=== PATIENT | female | born 1985 | race Asian ===

== ENCOUNTER → 2023-03-21 15:08 | Outpatient (BNVA) | payer OTHER, SELFPAY | PROVIDERS: PCP Advanced Practice Midwife; Visit Provider Nurse Practitioner Family | DX: N31.9 Neuromuscular dysfunction of bladder, unspecified (principal) | CPT/HCPCS: 99202 ==

== ENCOUNTER 2023-07-07 08:33 | Outpatient (AMB) | payer OTHER, SELFPAY ==
--- NOTE | 2023-07-07 09:05 | MHC.OFFWIV ---
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 Patient Tobacco Use Status: Former Tobacco user Allergies No Known Allergies Allergy (Verified 07/07/23 09:10) Do you need a note to return to daycare/school/sports/work: No HPI HPI Comments History of Present Illness Details This is a 38-year-old female with no stated past medical history who is currently 40+ weeks presenting for evaluation of a foreign body sensation in her left ear. Patient states yesterday afternoon she was cleaning her left ear with a Q-tip and she believes some of the cotton is remaining in her left ear. Patient states that she attempted to flush her ear last night was something she purchased at [employer] however was not successful. Patient denies any discomfort blood from her ear or decresed hearing. [facility] Surgical History H/O Spinal surgery Social History Patient Tobacco Use Status: Former Tobacco user Review of Systems Const All systems reviewed & are unremarkable except as noted in HPI and below ENT Reports other (foreign body left ear) Skin/Breast Reports system reviewed and no additional complaints, except as documented Physical Exam Vital Signs: Last Vital Signs Pulse 78 07/07/23 09:09 BP 112/70 07/07/23 09:09 Pulse Ox 98 07/07/23 09:09 Oxygen Delivery Method Room Air 07/07/23 09:09 BMI result Body Mass Index 41.6 Const General: cooperative, healthy appearing, comfortable, no acute distress, well developed, alert and other (normotensive, gravid) Nutritional Appearance: other Orientation/consciousness: patient oriented x3 Limitations: no limitations HEENT Head: Yes normal to inspection Ears: hearing grossly normal bilaterally, TM's normal bilaterally and other (no foreign body noted L ear canal; mild abrasion noted inferior L canal) Face and sinus: Yes normal facial exam Neuro General: patient oriented x3 Psych Appearance: grossly normal Mental Status: mental status grossly normal Insight: Good insight present (Psych) Judgement: Good judgement present (Psych) Assessment & Plan Assessment & Plan (1) Foreign body sensation in left ear canal: Code(s): H61.892 - Other specified disorders of left external ear Plan: No further intervention is required at this time; there was no evidence of retained foreign body in the left ear canal. Coding Level of Care Code Est Pt Level 3 (86990) Diagnoses Foreign body sensation in left ear canal H61.892 Time Spent (min) 15
[2023-07-07 09:09] VITALS: BP 112/70; PULSE 78; O2SAT 98; BMI 41.6
== END 2023-07-07 09:41 | disposition home or self-care (01) ==
PROVIDERS: PCP Advanced Practice Midwife; Visit Provider Physician Assistant
DX: H61.892 Other specified disorders of left external ear (principal)
CPT/HCPCS: 99213

== ENCOUNTER 2023-10-27 15:30 | Outpatient (AMB) | payer OTHER, SELFPAY ==
--- NOTE | 2023-10-27 15:46 | A.OFFVIS_ITS ---
Intake Intake Visit Reasons: 6m follow up Intake Note: Former Patient of Steff[facility], presents today to established treatment with Dr Isela Bajwa for Neurogenic Bladder: Urology Medications: none Blood Thinner: none Cartographic Engineer Required: No Accompanied by: Self / Same As Patient Allergies No Known Allergies Allergy (Verified 10/27/23 15:48) HPI HPI Comments History of Present Illness Details Marisol is a 38-year-old female patient who presents to the office for on going urinary issues. In discussion with the patient today she reports a longstanding history since 2016 of clean intermittent catheterization due to longstanding history of spinal issues as a baby that has lead to being diagnosed with a neurogenic bladder. She reports following up with Urology in [place] where she previously lived however has now moved here and would like to establish urology care. She self catheterizes about 4 times per day. She denies irritative voiding symptoms. She reports previously undergoing urology workup in [place] and being diagnosed with a neurogenic bladder. 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 She has been followed by neurology in the past. Plan- follow up office cystoscopy, renal US prior [facility] Surgical History H/O Spinal surgery Social History Patient Tobacco Use Status: Former Tobacco user Review of Systems Const All systems reviewed & are unremarkable except as noted in HPI and below Reports no additional complaints Eyes Reports no additional complaints ENT Reports no additional complaints Card Denies dyspnea Resp Denies cough and Denies dyspnea GI Reports no additional complaints Reports no additional complaints Musc Reports no additional complaints Skin/Breast Denies rash and Denies unusual bruising Neuro Reports no additional complaints Psych Reports no additional complaints Endo Reports no additional complaints Fernando/Lymph Reports no additional complaints Aller/Immun Reports no additional complaints Results AMB Urinalysis, Automated UA Leukoctes 0 Natasha/uL Last Edit by [facility], [facility] on 10/27/23 15 :57 UA Nitrite Negative Last Edit by [facility], [facility] on 10/27/23 15: 57 UA Urobilinogen 0.2 mg/dL Last Edit by [facility], [facility] on 4 15:57 UA Protein 0 mg/dL Last Edit by [facility], [facility] on 10/27/23 15:57 UA pH 7.0 Last Edit by [facility], [facility] on 10/27/23 15:57 UA Blood 0 Colby/uL Last Edit by [facility], [facility] on 10/27/23 15:57 UA Specific [place] 1.015 Last Edit by [facility], [facility] on 15:57 UA Ketone Negative Last Edit by [facility], [facility] on 10/27/23 15:5 7 UA Bilirubin 0 mg/dL Last Edit by [facility], [facility] on 10/27/23 15: 57 UA Glucose 0 mg/dL Last Edit by [facility], [facility] on 10/27/23 15:57 Results Reviewed Results Reviewed: Laboratory Last Values Urine pH (Auto) 7.0 10/27/23 15:55 Specific [place] (Auto) 1.015 10/27/23 15:55 Urine Protein (Auto) 0 mg/dL 10/27/23 15:55 Glucose (UA)(Auto) 0 mg/dL 10/27/23 15:55 Urine Ketones (Auto) Negative 10/27/23 15:55 Urine Blood (Auto) 0 Colby/uL 10/27/23 15:55 Urine Nitrite (Auto) Negative 10/27/23 15:55 Urine Bilirubin (Auto) 0 mg/dL 10/27/23 15:55 Urine Urobilinogen (Auto) 0.2 mg/dL 10/27/23 15:55 Leukocyte Esterase (Auto) 0 Natasha/uL 10/27/23 15:55 Assessment & Plan Assessment & Plan (1) Neurogenic bladder: Code(s): N31.9 - Neuromuscular dysfunction of bladder, unspecified (2) History of tethered spinal cord: Code(s): Z86.69 - Personal history of other diseases of the nervous system and sense organs Plan fu office cystoscopy, renal US prior Orders: Orders AMB Urinalysis Automated 10/27/23 N31.9 - Neuromuscular dysfunction of bladder, unspecified Patient Instructions: The patient had an opportunity to ask questions regarding treatment plan. All questions were answered. No major barriers to understanding were identified. The patient expressed understanding and agreement with the above treatment plan. The patient is aware they should contact our office by phone for worsening of their current condition or the appearance of new symptoms. Compliance is encouraged with any medications and followup testing that is ordered. It is a privilege to be allowed the opportunity to participate in the urologic care of your patient. If you have any questions or concerns regarding treatment for the above conditions please do not hesitate to contact me. The office telephone contact is [phone]. This note is constructed in part using voice recognition software. While every effort has been made to ensure accuracy buffing machine tender errors may have been included. Yours sincerely, Karin Walker MD Coding Level of Care Code Est Pt Level 4 (36948) Diagnoses Neurogenic bladder N31.9 History of tethered spinal cord Z86.69
== END 2023-10-27 16:22 | disposition home or self-care (01) ==
PROVIDERS: PCP Advanced Practice Midwife; Visit Provider Urology
DX: N31.9 Neuromuscular dysfunction of bladder, unspecified (principal); Z86.69 Personal history of other diseases of the nervous system and sense organs
CPT/HCPCS: 99214

== ENCOUNTER → 2023-10-27 15:30 | Outpatient (BNVA) | payer OTHER, SELFPAY | PROVIDERS: PCP Advanced Practice Midwife; Visit Provider Urology | DX: N31.9 Neuromuscular dysfunction of bladder, unspecified (principal); Z86.69 Personal history of other diseases of the nervous system and sense organs | CPT/HCPCS: 81003; 99212 ==

== ENCOUNTER 2024-02-12 14:38 | Outpatient (AMB) | payer OTHER, SELFPAY ==
--- NOTE | 2024-02-12 14:40 | A.OFFVIS_ITS ---
Intake Visit Reasons: cysto Intake Note: Patient presents today for a CYSTOSCOPY Procedure: Meds: None Allergies to Antibiotic: No Known Allergies Blood Thinner: None Urinalysis test clear for Cysto? YES Disposable Uro-G HD Cystoscope Cannula: Lot: [id number] Exp: 10/10/2026 Solar Design Engineer Required: No Accompanied by: Self / Same As Patient Allergies No Known Allergies Allergy (Verified 02/12/24 14:40) HPI Comments Details: 02/12/2024--here for office cystoscopy. History of neurogenic bladder. Marisol is on clean intermittent catheterization due to longstanding neurogenic bladder, spinal defect at , surgery for spinal cord tethering. She is currently . She did not have renal ultrasound done. Cystoscopy findings: Moderate trabeculations and cellule changes, no suspicious bladder lesions visualized. The patient needs to have Renal ultrasound. Discussed further evaluation with urodynamics. Review of chart: 10/27/23--Marisol is a 38-year-old female patient who presents to the office for ongoing urinary issues. In discussion with the patient today she reports a longstanding history since 2017 of clean intermittent catheterization due to longstanding history of spinal issues as a baby that has lead to being diagnosed with a neurogenic bladder. She reports following up with Urology in [place] where she previously lived however has now moved here and would like to establish urology care. She self catheterizes about 4 times per day. She denies irritative voiding symptoms. She reports previously undergoing urology workup in [place] and being diagnosed with a neurogenic bladder. 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 She has been followed by neurology in the past. Plan- follow up office cystoscopy, renal US prior [facility] Surgical History H/O Spinal surgery Social History Patient Tobacco Use Status: Former Tobacco user Review of Systems Const All systems reviewed & are unremarkable except as noted in HPI and below Reports no additional complaints Eyes Reports no additional complaints ENT Reports no additional complaints Card Reports no additional complaints Resp Reports no additional complaints GI Reports no additional complaints Reports as per HPI Musc Reports no additional complaints Skin/Breast Reports system reviewed and no additional complaints, except as documented Neuro Reports no additional complaints Psych Reports no additional complaints Endo Reports no additional complaints Fernando/Lymph Reports no additional complaints Aller/Immun Reports no additional complaints Office Procedures Cystoscopy Consent Discussed risk and benefit or proposed procedure with the patient. Information consent for procedure given to the patient. Discussed technical aspects, risks, benefits and alternatives in full. Addressed all of the patient's questions and concerns regarding the procedure. The patient demonstrated knowledge and understanding. They wish to proceed with this procedure. Preparation The patient was prepped in the usual manner. A putty tinter maker was present and in the room. Genitalia was prepped with betadine solution in a sterile manner. Lidocaine Jelly 2% was placed into the urethra and 16Fr flexible Olympus cystoscope was inserted into the meatus after adequate lubrication. Procedure Time out per protocol performed. Bladder Inspection Bladder Inspection: The bladder was inspected in its entirety with utilization retroflexion displaying: Tumor(s): No suspicious lesions visualized Trabeculation: Present-moderate Mucosal Erthema: NA Orifices: normal shape and position Urethra: normal Cystoscopy findings: Moderate trabeculations and cellule changes, no suspicious bladder lesions visualized [id number] DISPOSABLE SCOPE URO-G FLEXIBLE SCOPE Procedure code (CPT) selection complete Office Meds lidocaine HCl 2 % mucosal jelly in applicator Performing Provider: Karin Walker MD [facility] Administered by: Maxi Lemus LPN on 02/12/24 15:05 Dose Route Admin Location Dispensed Lot Number Expiration Date [facility] Marketing Content Specialist 10 mL intra-urethral 20 mL Results AMB Urinalysis, Automated UA Leukoctes 0 Natasha/uL Last Edit by RUTH Blount on 02/12/24 15:03 UA Nitrite Negative Last Edit by RUTH Blount on 02/12/24 15:03 UA Urobilinogen 0.2 mg/dL Last Edit by RUTH Blount on 02/12/24 15:0 3 UA Protein 0 mg/dL Last Edit by CAITLIN BlountA on 02/12/24 15:03 UA pH 6.0 Last Edit by Kwasi Maria, A on 02/12/24 15:03 UA Blood 0 Colby/uL Last Edit by Kwasi Maria A on 02/12/24 15:03 UA Specific [place] 1.015 Last Edit by Kwasi Maria, A on 02/12/24 15: 03 UA Ketone Negative Last Edit by Kwasi Maria A on 02/12/24 15:03 UA Bilirubin 0 mg/dL Last Edit by Kwasi Maria A on 02/12/24 15:03 UA Glucose 0 mg/dL Last Edit by Kwasi Maria A on 02/12/24 15:03 Results Reviewed Results Reviewed: Laboratory Last Values Urine pH (Auto) 6.0 02/12/24 14:44 Specific [place] (Auto) 1.015 02/12/24 14:44 Urine Protein (Auto) 0 mg/dL 02/12/24 14:44 Glucose (UA)(Auto) 0 mg/dL 02/12/24 14:44 Urine Ketones (Auto) Negative 02/12/24 14:44 Urine Blood (Auto) 0 Colby/uL 02/12/24 14:44 Urine Nitrite (Auto) Negative 02/12/24 14:44 Urine Bilirubin (Auto) 0 mg/dL 02/12/24 14:44 Urine Urobilinogen (Auto) 0.2 mg/dL 02/12/24 14:44 Leukocyte Esterase (Auto) 0 Natasha/uL 02/12/24 14:44 Assessment & Plan Assessment & Plan (1) Neurogenic bladder: Code(s): N31.9 - Neuromuscular dysfunction of bladder, unspecified Category: Medical (2) History of tethered spinal cord: Code(s): Z86.69 - Personal history of other diseases of the nervous system and sense organs Category: Medical Plan Renal ultrasound. Discussed evaluation with urodynamics in the future. Orders: Orders AMB Urinalysis Automated 02/12/24 Z13.9 - Encounter for screening, unspecified AMB Cystoscopy 02/12/24 N31.9 - Neuromuscular dysfunction of bladder, unspecified Patient Instructions: The patient had an opportunity to ask questions regarding treatment plan. The patient expressed understanding and agreement with the above treatment plan. The patient is aware they should contact our office by phone for worsening of their current condition or the appearance of new symptoms. Compliance is encouraged with any medications and followup testing that is ordered. It is a privilege to be allowed the opportunity to participate in the urologic care of your patient. If you have any questions or concerns regarding treatment for the above conditions please do not hesitate to contact me. The office telephone contact is [phone]. This note is constructed in part using voice recognition software. While every effort has been made to ensure accuracy caddie supervisor errors may have been included. Yours sincerely, Karin Walker MD Coding Level of Care Code Procedure Only Diagnoses Neurogenic bladder N31.9 History of tethered spinal cord Z86.69 CPT Codes Cystoscopy - CPT: [id number] ([id number])
== END 2024-02-12 15:36 | disposition home or self-care (01) ==
PROVIDERS: PCP Advanced Practice Midwife; Visit Provider Urology
DX: N31.9 Neuromuscular dysfunction of bladder, unspecified (principal); Z13.9 Encounter for screening, unspecified
CPT/HCPCS: 52000

== ENCOUNTER → 2024-02-12 14:38 | Outpatient (BNVA) | payer OTHER, SELFPAY | PROVIDERS: PCP Advanced Practice Midwife; Visit Provider Urology | DX: N31.9 Neuromuscular dysfunction of bladder, unspecified (principal); Z86.69 Personal history of other diseases of the nervous system and sense organs | CPT/HCPCS: 52000; 81003 ==